=== PATIENT | female | born 1940 | race African-American/Black ===

== ENCOUNTER 2020-03-31 04:37 | Inpatient (IN) | payer MEDICARE ==
[~2020-03-31] VITALS: Ht 157.5 cm; Wt 39.5 kg
--- NOTE | 2020-03-31 04:45 | NUR ---
Patient BIB ambulance on a gurney accompanied by 2 paramedics from [facility], Dx Psychosis. Patient medically cleared by Dr. Hunter.
[2020-03-31] MEDS ORDERED: OLAN5TAB30 PO (05:10)
[2020-03-31] MEDS ORDERED: PENI250C2 PO (05:10)
[2020-03-31] MEDS ORDERED: ZOLP5TAB2 PO (05:10)
[2020-03-31] MEDS ORDERED: ALBU8.5H8 IH (05:10)
[2020-03-31] MEDS ORDERED: SERT50TA PO (05:10)
[2020-03-31] MEDS ORDERED: CLON1PAT TD (05:22)
[2020-03-31] MEDS ORDERED: LITH300T3 PO (05:22)
[2020-03-31] MEDS ORDERED: MAGNESIUM HYDROXIDE 30 ML LIQUID UDC PO PRN (06:00)
[2020-03-31] MEDS ORDERED: ACETAMINOPHEN 325 MG TABLET PO PRN (06:00)
[2020-03-31] MEDS ORDERED: MAG HYDROX/AL HYDROX/SIMETH 30 ML LIQUID UDC PO PRN (06:00)
[2020-03-31] MEDS ORDERED: BLOOD SUGAR DIAGNOSTIC 1 EACH STRIP VI ONE (06:00)
--- NOTE | 2020-03-31 06:30 | NUR ---
AT APPROX 0530 ADMITTED 79 YEARS OLD FEMALE TO [facility] MHU ON A 5150 HOLD FOR GD. FACE TO FACE ASSESSMENT DONE. PATIENT REFLECTS WHAT IS WRITTEN IN THE HOLD. PATIENT NOTED A/O X 1, SHE IS UNABLE TO HAVE A MEANINGFUL CONVERSATION WITH THIS PIPELINE SUPERINTENDENT DIVISION, UNABLE TO SIGN ADMISSION PAPER D/T CONFUSED. PATIENT WAS GIVEN HER ADVISEMENT WELL HER BOOKLET FOR PATIENT IN MENTAL HEALTH FACILITIES. PATIENT IS UNDER THE CARE OF DR. BRODERICK. HE WAS NOTIFIED OF ADMISSION. WILL CONTINUE WITH Q15 MIN CHECKS.
--- NOTE | 2020-03-31 07:17 | NUR ---
Received patient AOx1, confused, disorganized, newly admitted from shift manager, patient don't have dentures , continuously rambling sitting on celeste chair, with ID band on, patient was admitted for 5150 Gravely Disabled up today at 1530, for not been eating and not sleeping and being disorganized , patient unable to provide viable plan of self care, patient unable to have sensical conversation, and confabulate her words, patient started to bang her table and agitated, oral prn for agitation, was made aware of the admission, orders made and carried out, seen and examined by TECHNICAL WRITING LEAD/MGR Larissa Mayers , orders for gentamicin eye drop and UA specimen was collected,patient fell asleep and took a nap in the morning after the medication, patient woke up after few hours and able to consume 100% of her breakfast and lunch with 100% of ensure, patient able to took shower with assistance able to called and spoke with her previous assisted living ([facility]) ([phone]) ,spoke with Laverne and they were able to confirm that the patient originated from them and they provided information regarding the patient, patient been cooperative and calm, no distress at this time
[2020-03-31 07:30] VITALS: BP 156/81
[2020-03-31] MEDS: CLONAZEPAM 0.5 MG TABLET PO PRN (07:42)
--- NOTE | 2020-03-31 08:56 | NUR ---
Firearms Report: [employer] completed and submitted a [employer] firearms report for 5150 grave disability certification. A copy of report has been placed in patient chart.
--- NOTE | 2020-03-31 10:19 | NUR ---
FABIO Initial Discharge Plan: Patient currently resides at an Assisted Living [address] [place] [address]; ([phone]). Patient does not have family at the moment. This proposal manager writer contacted lauren Galloway ([phone]) and did not have a voicemail set up. This proposal manager writer was unable to leave a voicemail. FABIO will work with the MD to help coordinate placement and discharge plan.
--- NOTE | 2020-03-31 10:20 | NUR ---
[facility] Contact: This telegraphic typewriter operator contacted [facility] ([phone]) to gather collateral and spoke with FABIO Castro who stated pt was previously at [facility] psych unit and was sent to [facility] due to medical issues and was medically cleared. [facility] no longer had beds available and was sent to [facility]. Per Gloria, pt does not have any family members at the moment. She provided pt's assisted living information: [address] [place] [phone]; ([phone]) Laverne aguilar who did not have a voicemail set up. This SW was unable to leave a voicemail.
--- NOTE | 2020-03-31 10:21 | NUR ---
SW Family Contact: Pt does not have any supportive contact at the moment.
[2020-03-31 11:03] LABS: *BILIRUBIN,URIN NEGATIVE (NEGATIVE); *CLARITY,URINE SLIGHTLY CLOUDY (CLEAR); *COLOR,URINE YELLOW (YELLOW); *KETONES,URINE NEGATIVE (NEGATIVE); *UROBILINOGEN,URINE 0.2 E.U./dl (NORMAL); LEUKOCYTE ESTERASE ,URINE 2+ (NEGATIVE); NITRITE, URINE NEGATIVE (NEGATIVE); PH,URINE 6.5 (5.0-8.0); UGLUCOSE NEGATIVE (NEGATIVE)
[2020-03-31 11:04] LABS: *BLOOD, URINE TRACE (NEGATIVE)
[2020-03-31 12:30] LABS: BACTERIA,URINE FEW /HPF (NONE SEEN); RBC,URINE 0-3 /HPF (0-3); SQUAMOUS EPITHELIAL CELL,UR FEW /HPF (NONE SEEN)
[2020-03-31] MEDS: ENSURE ENLIVE (VAN) 240 ML LIQUID PO SCH ×2 (13:00→16:27)
[2020-03-31] MEDS: GENTAMICIN SULFATE OPHT DROP 5 ML BOTTLE EACHEYE SCH ×3 (13:00→21:45)
[2020-03-31] MEDS ORDERED: ALBUTEROL SULFATE 2.5 MG/3 ML NEBU IH PRN (15:00)
[2020-03-31] MEDS: SERTRALINE HCL 50 MG TABLET PO SCH (15:04)
[2020-03-31] MEDS: risperiDONE-M 0.5 MG TAB.RAPDIS PO SCH ×2 (15:04→21:45)
[2020-03-31 16:00] VITALS: BP 139/70
[2020-03-31] MEDS: CLONIDINE-TTS 1 PATCH TD SCH (16:26)
[2020-03-31] MEDS ORDERED: GENTAMICIN SULFATE OPHT DROP 5 ML BOTTLE EACHEYE SCH (17:00)
[2020-03-31 20:00] VITALS: BP 146/72
[2020-03-31] MEDS: LITHIUM CARBONATE 300 MG CAPSULE PO SCH (21:45)
[2020-03-31] MEDS: CEphaleXIN 500 MG CAPSULE PO SCH (21:45)
--- NOTE | 2020-03-31 21:51 | NUR ---
PATIENT RECEIVED IN ADA CHAIR ALERT/ORIENTED X1 WITH CONFUSION, DISORGANIZED, LABILE, COMBATIVE, AND HYPERVERBAL. PATIENT REQUIRES REDIRECTION WITH MEDICATION/CARE/DIET. PATIENT REQUIRES CONSTANT REDIRECTION. SAFE ENVIRONMENT PROVIDED AND FREQUENT ROUNDING.WILL CONTINUE TO MONITOR AND REDIRECT NEEDED.
[2020-04-01] MEDS: TEMAZEPAM 7.5 MG CAPSULE PO PRN (01:16)
[2020-04-01 07:53] VITALS: BP 133/49
[2020-04-01] MEDS: SERTRALINE HCL 50 MG TABLET PO SCH (09:00)
[2020-04-01] MEDS: CEphaleXIN 500 MG CAPSULE PO SCH ×2 (09:00→21:00)
[2020-04-01] MEDS: ENSURE ENLIVE (VAN) 240 ML LIQUID PO SCH ×3 (09:00→17:48)
[2020-04-01] MEDS: risperiDONE-M 0.5 MG TAB.RAPDIS PO SCH ×2 (09:00→21:00)
[2020-04-01] MEDS: GENTAMICIN SULFATE OPHT DROP 5 ML BOTTLE EACHEYE SCH ×4 (09:00→21:00)
--- NOTE | 2020-04-01 10:58 | NUR ---
Assisted Living Contact: abatement worker contacted patient's assisted living [facility] and spoke with admin Laverne ([phone]) who stated they have arranged pt to go to [facility] ([phone]) and stated [facility] nurse will reach out to this content writer to send clinicals.
--- NOTE | 2020-04-01 11:42 | NUR ---
SNF Contact: This field underwriter received a phone call from Lawanda ([phone]) ([phone]) who stated pt's sister facility [facility] assisted [facility] wants pt to transfer to [facility] and requires clinicals for review. This field underwriter sent clinicals.
--- NOTE | 2020-04-01 14:27 | NUR ---
SNF Contact: Lawanda senior hr business partner from [address] , [place] [address]; ([phone]) (C: [phone]) (F:[phone]) who stated pt is accepted.
[2020-04-01 16:39] VITALS: BP 118/49
[2020-04-01 20:00] VITALS: BP 144/65
[2020-04-01] MEDS: LITHIUM CARBONATE 300 MG CAPSULE PO SCH (21:00)
--- NOTE | 2020-04-02 03:42 | NUR ---
Patient received earlier in the shift , walking around the unit, talking to self and responding to internal stimuli. Patient is confused and paranoid, refusing to take any medications. Patient stated " I will not take any pills, they are plaster". This check writer redirected and reoriented patient with little success. Patient also refusing to sleep in bed but was willing to sleep in the celeste chair. Patient is hyperverbal and argumentative with everything at this point, and unable to engage in any meaningful conversation. Continuing to monitor for further behavior escalation and for safety.
--- NOTE | 2020-04-02 06:40 | NUR ---
Patient slept 6.00 hours last night . Up early this am. Patient ate some snack but still is demanding and argumentative. Monitoring for safety.
[2020-04-02 07:30] VITALS: BP 134/53
[2020-04-02 08:02] LABS: BASOPHILS % (AUTO) 0.2 % (0.0-2.0); EOSINOPHILS % (AUTO) 0.2 % (0.0-7.0); HEMATOCRIT 32.8 % (31.2-41.9); HEMOGLOBIN 11.2 g/dL (10.9-14.3); LYMPHOCYTES # (AUTO) 1.1 K/uL (20.0-40.0); LYMPHOCYTES % (AUTO) 15.2 % (20.5-51.5); MEAN CORPUSCULAR HEMOGLOBIN 34.2 uug (24.7-32.8); MEAN CORPUSCULAR HGB CONC 34 g/dL (32.3-35.6); MONOCYTES # (AUTO) 0.3 K/uL (2.0-10.0); MONOCYTES % (AUTO) 4.4 % (0.0-11.0); NEUTROPHILS # (AUTO) 5.6 K/uL (1.8-8.9); PLATELET COUNT (AUTO) 185 K/uL (179-408); RED BLOOD CELL COUNT(AUTO) 3.28 MIL/uL (3.63-4.92)
[2020-04-02 08:05] LABS: ALANINE AMINOTRANSFERASE 61 U/L (14-59); ALKALINE PHOSPHATASE 78 U/L (50-136); ASPARTATE AMINOTRANSFERASE 42 U/L (15-37); BILIRUBIN,TOTAL 0.3 mg/dL (0.2-1.0); CARBON DIOXIDE 26 mmol/L (21-32); CHLORIDE 107 mmol/L (98-107); CREATINE KINASE, TOTAL 50 U/L (26-192); CREATININE 1.4 mg/dL (0.6-1.3); GLUCOSE 101 mg/dL (74-106); MAGNESIUM 2.2 mg/dL (1.8-2.4); PHOSPHOROUS 2.4 mg/dL (2.5-4.9); POTASSIUM 4.4 mmol/L (3.5-5.1); TOTAL PROTEIN, SERUM 7.3 g/dL (6.4-8.2); UREA NITROGEN, BLOOD 45 mg/dL (7-18)
[2020-04-02] MEDS: ENSURE ENLIVE (VAN) 240 ML LIQUID PO SCH ×3 (08:48→16:24)
[2020-04-02] MEDS: CEphaleXIN 500 MG CAPSULE PO SCH ×2 (08:48→20:34)
[2020-04-02] MEDS: GENTAMICIN SULFATE OPHT DROP 5 ML BOTTLE EACHEYE SCH ×4 (08:48→20:33)
[2020-04-02] MEDS: risperiDONE-M 0.5 MG TAB.RAPDIS PO SCH ×2 (08:48→20:34)
[2020-04-02] MEDS: SERTRALINE HCL 50 MG TABLET PO SCH (08:49)
--- NOTE | 2020-04-02 10:34 | NUR ---
FABIO PC Hearing: Patient had probable cause hearing today and it was upheld for grave disability.
[2020-04-02 16:00] VITALS: BP 125/47
[2020-04-02] MEDS ORDERED: NEUTRA PHOS PACKET PO ONE (17:30)
[2020-04-02 20:00] VITALS: BP 140/68
[2020-04-02] MEDS: LITHIUM CARBONATE 300 MG CAPSULE PO SCH (20:34)
--- NOTE | 2020-04-03 02:39 | NUR ---
Patient refused all medications last night. Still very paranoid, this patient yelled and screamed at director underwriter sales when medications were discussed. Patient became combative when asked to move away from the nurses station and tried to hit staff. Redirection and reorientation provided with reality based conversation as much as the patient would allow. Monitoring for safety and further behavior escalation episodes. Patient refuses to sleep in her bed d/t delusions of the room " full of men and homosexual women". This patient spends most of her time talking to herself and arguing with staff and peers.
--- NOTE | 2020-04-03 06:28 | NUR ---
Patient slept only 3.00 hours last night and was up early talking to self non stop. Shower was offered and patient refused. Monitoring patient closely and encouraging oral intake of food and fluids.
[2020-04-03 07:30] VITALS: BP 156/76
[2020-04-03] MEDS: ENSURE ENLIVE (VAN) 240 ML LIQUID PO SCH ×3 (09:00→17:00)
[2020-04-03] MEDS: GENTAMICIN SULFATE OPHT DROP 5 ML BOTTLE EACHEYE SCH ×4 (09:00→20:51)
[2020-04-03] MEDS: SERTRALINE HCL 50 MG TABLET PO SCH (09:00)
[2020-04-03] MEDS: risperiDONE-M 0.5 MG TAB.RAPDIS PO SCH ×3 (09:00→21:00)
[2020-04-03] MEDS: CEphaleXIN 500 MG CAPSULE PO SCH (09:00)
[2020-04-03] MEDS: levoFLOXacin 250 MG TABLET PO SCH (14:00)
[2020-04-03] MEDS ORDERED: levoFLOXacin 500 MG TABLET PO SCH (14:00)
[2020-04-03 20:00] VITALS: BP 128/54
[2020-04-03] MEDS: LITHIUM CARBONATE 300 MG CAPSULE PO SCH ×2 (20:50→20:58)
--- NOTE | 2020-04-04 03:46 | NUR ---
RECEIVED PATIENT IN A IN ADA CHAIR. CONFUSED, LABILE,AND COULD BE HEARD TALKING TO HERSELF IN A RAMBLING MANNER. SHE REFUSED ALL MEDICATIONS SAYING "I WANT TO CLEAN OUT MY STOMACH FROM ANY MEDICINE AND WHATEVER JUNK THAT IS CAUSING IT".COULD NOT HOLD ANY MEANINGFUL CONVERSATIONS WITH HER. VISUAL CHECKS MADE ON HER FOR SAFETY. WILL CONTINUE TO MONITOR.
--- NOTE | 2020-04-04 06:47 | NUR ---
SHE SLEPT FOR 7:30 HOURS. SHE HAS BEEN GIVEN A SHOWER. STILL TALKING TO HERSELF.
[2020-04-04 07:30] VITALS: BP 130/50
[2020-04-04 07:55] LABS: CARBON DIOXIDE 27 mmol/L (21-32); CHLORIDE 108 mmol/L (98-107); CREATININE 1.5 mg/dL (0.6-1.3); GLUCOSE 92 mg/dL (74-106); POTASSIUM 4.5 mmol/L (3.5-5.1); UREA NITROGEN, BLOOD 52 mg/dL (7-18)
[2020-04-04 08:09] LABS: BASOPHILS % (AUTO) 0.1 % (0.0-2.0); EOSINOPHILS % (AUTO) 0.2 % (0.0-7.0); HEMATOCRIT 32.5 % (31.2-41.9); HEMOGLOBIN 11.2 g/dL (10.9-14.3); LYMPHOCYTES # (AUTO) 1.4 K/uL (20.0-40.0); MEAN CORPUSCULAR HEMOGLOBIN 34.3 uug (24.7-32.8); MEAN CORPUSCULAR HGB CONC 35 g/dL (32.3-35.6); MEAN CORPUSCULAR VOLUME 99.3 fL (75.5-95.3); MONOCYTES # (AUTO) 0.6 K/uL (2.0-10.0); NEUTROPHILS # (AUTO) 6.6 K/uL (1.8-8.9); NEUTROPHILS % (AUTO) 76.7 % (38.5-71.5); PLATELET COUNT (AUTO) 235 K/uL (179-408); RED BLOOD CELL COUNT(AUTO) 3.27 MIL/uL (3.63-4.92); WHITE BLOOD COUNT (AUTO) 8.6 K/uL (3.8-11.8)
[2020-04-04] MEDS: risperiDONE-M 0.5 MG TAB.RAPDIS PO SCH ×2 (09:00→21:00)
[2020-04-04] MEDS: ENSURE ENLIVE (VAN) 240 ML LIQUID PO SCH ×3 (09:00→17:00)
[2020-04-04] MEDS: SERTRALINE HCL 50 MG TABLET PO SCH (09:00)
[2020-04-04] MEDS: GENTAMICIN SULFATE OPHT DROP 5 ML BOTTLE EACHEYE SCH ×4 (09:00→21:00)
--- NOTE | 2020-04-04 13:39 | NUR ---
Pt remains confused, disoriented, and disorganized. Refuses all medications.
[2020-04-04] MEDS: levoFLOXacin 250 MG TABLET PO SCH (14:00)
[2020-04-04 16:00] VITALS: BP 105/41
[2020-04-04 20:08] VITALS: BP 112/51
[2020-04-04] MEDS: LITHIUM CARBONATE 300 MG CAPSULE PO SCH (21:00)
[2020-04-05 07:30] VITALS: BP 120/45
[2020-04-05] MEDS: ENSURE ENLIVE (VAN) 240 ML LIQUID PO SCH ×3 (09:00→17:00)
[2020-04-05] MEDS: risperiDONE-M 0.5 MG TAB.RAPDIS PO SCH ×2 (09:00→21:00)
[2020-04-05] MEDS: SERTRALINE HCL 50 MG TABLET PO SCH (09:00)
[2020-04-05] MEDS: GENTAMICIN SULFATE OPHT DROP 5 ML BOTTLE EACHEYE SCH (09:00)
[2020-04-05] MEDS: levoFLOXacin 250 MG TABLET PO SCH (14:00)
[2020-04-05 15:38] VITALS: BP 119/51
--- NOTE | 2020-04-05 19:30 | NUR ---
RECEIVED PT IN A ADA-CHAIR.PT IN NO ACUTE DISTRESS.PT CONFUSED AND DISORIENTED. NOT COOPERATIVE WITH CARE. . SAFETY AND COMFORT PROVIDED. WILL CONTINUE TO MONITOR.
[2020-04-05 20:23] VITALS: BP 105/59
[2020-04-05] MEDS: LITHIUM CARBONATE 300 MG CAPSULE PO SCH (21:00)
--- NOTE | 2020-04-06 06:51 | NUR ---
PT SLEPT 9 HOURS. PT IN NO ACUTE DISTRESS NOTED. PT UNCOOPERATIVE WITH CARE. PT TRYING TO HIT STAFF WHEN DOING ADL. PT REFUSED HER MEDICATION. PT TURNED AND REPOSITIONED. SACRAL REDNESS NOTED PRESCRIBED MEDICATION GIVEN AND PT TOLERATED IT WELL. SAFETY AND COMFORT PROVIDED. WILL ENDORSE TO INCOMING NURSE FOR CONTINUITY OF CARE.
[2020-04-06 07:10] LABS: A/G RATIO 0.8 (0.7-1.7); ALBUMIN 2.8 g/dL (2.9-4.4); ALPHA-1-GLOBULIN 0.3 g/dL (0.0-0.4); ALPHA-2-GLOBULIN 0.9 g/dL (0.4-1.0); BETA GLOBULIN 0.9 g/dL (0.7-1.3); GAMMA GLOBULIN 1.6 g/dL (0.4-1.8); GLOBULIN, TOTAL 3.7 g/dL (2.2-3.9); M-SPIKE Not Observed g/dL (Not Observed)
[2020-04-06 07:30] VITALS: BP 140/54
[2020-04-06] MEDS: SERTRALINE HCL 50 MG TABLET PO SCH (09:00)
[2020-04-06] MEDS: risperiDONE-M 0.5 MG TAB.RAPDIS PO SCH ×2 (09:00→21:00)
[2020-04-06] MEDS: ENSURE ENLIVE (VAN) 240 ML LIQUID PO SCH ×3 (09:04→17:10)
[2020-04-06] MEDS: levoFLOXacin 250 MG TABLET PO SCH (14:00)
[2020-04-06 16:41] VITALS: BP 121/50
[2020-04-06 20:00] VITALS: BP 128/55
[2020-04-06] MEDS: LITHIUM CARBONATE 300 MG CAPSULE PO SCH (21:00)
--- NOTE | 2020-04-07 06:00 | NUR ---
Received patient in bed , awake but rambling and confused. Patient refused all medications and refused a shower. Total slept 9.00. This am , patient alert but refusing to get up out of bed. Continuing to monitor for safety and to provide and encourage food and fluids. No acute distress noted.
[2020-04-07 07:30] VITALS: BP 177/96
[2020-04-07] MEDS: ENSURE ENLIVE (VAN) 240 ML LIQUID PO SCH ×3 (08:44→17:00)
[2020-04-07] MEDS: SERTRALINE HCL 50 MG TABLET PO SCH (08:45)
[2020-04-07] MEDS: risperiDONE-M 0.5 MG TAB.RAPDIS PO SCH ×2 (08:45→21:00)
[2020-04-07] MEDS: Z GUARD REMEDY PASTE 57 GM TUBE TOP SCH ×2 (08:46→21:10)
[2020-04-07] MEDS: levoFLOXacin 250 MG TABLET PO SCH (14:00)
[2020-04-07] MEDS: CLONIDINE-TTS 1 PATCH TD SCH (15:46)
[2020-04-07 16:11] VITALS: BP 127/70
--- NOTE | 2020-04-07 17:52 | NUR ---
patient is confused and disoriented, refused all medication, agitated and aggressive when care provided.shower given diaper changed keep skin dry and clean intact.
[2020-04-07 20:00] VITALS: BP 112/78
[2020-04-07] MEDS: LITHIUM CARBONATE 300 MG CAPSULE PO SCH (21:00)
--- NOTE | 2020-04-07 22:06 | NUR ---
Patient received in bed awake. Patient alert/oriented x1 with confusion, disorganized, disoriented, labile, and agitated with aggression during patient care. Patient is non-complaint with medication/care/diet. Patient rambling and responding to internal stimulation. Safe environment provided, frequent rounding, and clutter free environment. Bed in lowest position, bed locked, and bed alarm on while in bed.
[2020-04-08 07:30] VITALS: BP 154/94
[2020-04-08 08:18] LABS: BASOPHILS % (AUTO) 0.5 % (0.0-2.0); EOSINOPHILS % (AUTO) 0.2 % (0.0-7.0); HEMATOCRIT 39.2 % (31.2-41.9); HEMOGLOBIN 13.3 g/dL (10.9-14.3); LYMPHOCYTES # (AUTO) 1.9 K/uL (20.0-40.0); LYMPHOCYTES % (AUTO) 23.6 % (20.5-51.5); MEAN CORPUSCULAR HEMOGLOBIN 34.2 uug (24.7-32.8); MEAN CORPUSCULAR HGB CONC 34 g/dL (32.3-35.6); MEAN CORPUSCULAR VOLUME 100.7 fL (75.5-95.3); MONOCYTES # (AUTO) 0.6 K/uL (2.0-10.0); MONOCYTES % (AUTO) 6.9 % (0.0-11.0); NEUTROPHILS # (AUTO) 5.5 K/uL (1.8-8.9); NEUTROPHILS % (AUTO) 68.8 % (38.5-71.5); PLATELET COUNT (AUTO) 333 K/uL (179-408); RED BLOOD CELL COUNT(AUTO) 3.89 MIL/uL (3.63-4.92)
[2020-04-08 08:30] LABS: CARBON DIOXIDE 30 mmol/L (21-32); CHLORIDE 110 mmol/L (98-107); CREATININE 2.3 mg/dL (0.6-1.3); GLUCOSE 117 mg/dL (74-106); MAGNESIUM 3.6 mg/dL (1.8-2.4); POTASSIUM 4.4 mmol/L (3.5-5.1)
[2020-04-08] MEDS: CLONAZEPAM 0.5 MG TABLET PO PRN (08:36)
[2020-04-08 08:49] LABS: UREA NITROGEN, BLOOD 99 mg/dL (7-18)
[2020-04-08] MEDS: SERTRALINE HCL 50 MG TABLET PO SCH (09:00)
[2020-04-08] MEDS: risperiDONE-M 0.5 MG TAB.RAPDIS PO SCH ×2 (09:00→20:47)
[2020-04-08] MEDS: ENSURE ENLIVE (VAN) 240 ML LIQUID PO SCH ×3 (09:00→14:58)
--- NOTE | 2020-04-08 09:00 | NUR ---
Gps/Olive Grower-Called Nancy Maloney NP reported critical lab BUN 99, waiting for return call and orders
[2020-04-08] MEDS ORDERED: OLANZAPINE 10 MG VIAL IM ONE (09:30)
[2020-04-08] MEDS ORDERED: LORAZEPAM 2 MG/1 ML VIAL IM ONE (09:30)
[2020-04-08] MEDS: Z GUARD REMEDY PASTE 57 GM TUBE TOP SCH ×2 (09:42→20:48)
--- NOTE | 2020-04-08 12:20 | NUR ---
Gps/Product Development Assistant- Court called regarding Reise hearing , requesting availability of Psychiatrist
[2020-04-08] MEDS: levoFLOXacin 250 MG TABLET PO SCH (14:00)
[2020-04-08] MEDS ORDERED: IV NS 1000 ML 1,000 ML IV ONE (14:15)
--- NOTE | 2020-04-08 15:10 | NUR ---
Mental [facility] Court Contact: FABIO called the Court ([phone]) and inquired about the pts Riese status. FABIO was informed that the earliest that it would be would be on Sunday based off of the MD availability. FABIO's supervisor stone confirmed with Dr. Griffin for a time that he would be available for Sunday and FABIO faxed over the change in availability on the Riese form to the fax number: [phone].
[2020-04-08 16:00] VITALS: BP 101/43
--- NOTE | 2020-04-08 17:00 | NUR ---
Gps/Rigger Chief- IV inserted insyte #24 to right forearm. IVF of NS 1 liter bolus infusing fairly well. Asleep no signs of any distress, safety reviewed and emphasized. bed alarm on , monitor safety.
--- NOTE | 2020-04-08 18:10 | NUR ---
Gps/Sanitarian Inspector-Remains asleep, no distress, IVF of NS i in progress, infusing well
[2020-04-08 20:00] VITALS: BP 122/62
[2020-04-08] MEDS: LITHIUM CARBONATE 300 MG CAPSULE PO SCH (20:47)
--- NOTE | 2020-04-09 06:16 | NUR ---
GPS: Pt. slept for 10 hrs.last night. Now awake and talking to self. Confused,disoriented and disorganized. Sips of water given for hydration purposes but pt.pocketing the water and spitting it out. Poor insight to present situation. Incontinence care provided. Fall precautions observed. In no acute resp.distress noted. Re-directed prn.
[2020-04-09 07:30] VITALS: BP 129/51
[2020-04-09 07:52] LABS: CARBON DIOXIDE 25 mmol/L (21-32); CHLORIDE 116 mmol/L (98-107); CREATININE 2.9 mg/dL (0.6-1.3); GLUCOSE 94 mg/dL (74-106); MAGNESIUM 3.2 mg/dL (1.8-2.4); PHOSPHOROUS 5.8 mg/dL (2.5-4.9); POTASSIUM 4.8 mmol/L (3.5-5.1)
[2020-04-09 07:56] LABS: BASOPHILS % (AUTO) 0.4 % (0.0-2.0); EOSINOPHILS % (AUTO) 0.2 % (0.0-7.0); HEMATOCRIT 36.4 % (31.2-41.9); HEMOGLOBIN 12.3 g/dL (10.9-14.3); LYMPHOCYTES # (AUTO) 2.4 K/uL (20.0-40.0); LYMPHOCYTES % (AUTO) 27.7 % (20.5-51.5); MEAN CORPUSCULAR HEMOGLOBIN 33.9 uug (24.7-32.8); MEAN CORPUSCULAR HGB CONC 34 g/dL (32.3-35.6); MEAN CORPUSCULAR VOLUME 100.8 fL (75.5-95.3); MONOCYTES # (AUTO) 0.6 K/uL (2.0-10.0); MONOCYTES % (AUTO) 6.6 % (0.0-11.0); NEUTROPHILS # (AUTO) 5.6 K/uL (1.8-8.9); NEUTROPHILS % (AUTO) 65.1 % (38.5-71.5); PLATELET COUNT (AUTO) 309 K/uL (179-408); RED BLOOD CELL COUNT(AUTO) 3.61 MIL/uL (3.63-4.92); WHITE BLOOD COUNT (AUTO) 8.6 K/uL (3.8-11.8)
[2020-04-09 08:01] LABS: UREA NITROGEN, BLOOD 110 mg/dL (7-18)
--- NOTE | 2020-04-09 08:02 | NUR ---
Emilie from lab called to report critical lab, BUN of 110.
--- NOTE | 2020-04-09 08:11 | NUR ---
Gps/Elevator Installer Apprentice- Called Nancy Maloney DNP, informed BUN 110 , Creat 2.9, orders received to transfer patient to Medical floor(3rd). Nursing Pyrometer Temperature Regulator Ericka was informed, sitter will be available not until 1300 .
[2020-04-09] MEDS ORDERED: IV NS 1000 ML 1,000 ML IV PRN (09:00)
[2020-04-09] MEDS: SERTRALINE HCL 50 MG TABLET PO SCH (09:00)
[2020-04-09] MEDS: ENSURE ENLIVE (VAN) 240 ML LIQUID PO SCH ×3 (09:00→17:00)
[2020-04-09] MEDS: risperiDONE-M 0.5 MG TAB.RAPDIS PO SCH ×2 (09:00→20:16)
[2020-04-09] MEDS ORDERED: IV NS 1000 ML 1,000 ML IV SCH (09:03)
[2020-04-09] MEDS: OLANZAPINE 10 MG VIAL IM PRN (11:09)
[2020-04-09] MEDS: levoFLOXacin 250 MG TABLET PO SCH (14:00)
[2020-04-09 15:16] VITALS: BP 112/50
[2020-04-09] MEDS: Z GUARD REMEDY PASTE 57 GM TUBE TOP SCH ×2 (15:20→20:17)
--- NOTE | 2020-04-09 15:21 | NUR ---
Gps/Respiratory Clinician- [place] [facility]um: 04/09/20 at 1522 by MOODY SAPPN error in charted
--- NOTE | 2020-04-09 15:22 | NUR ---
Gps/Conduit Cleaner-- Patient remains in MHU , pending bed availability on the M/S floor. Remains with IVF infusing well to her right forearm, via IV pump 75 ml per hours cont. Kept up on her celeste-chair, by the Nurses station , monitored closely for safety.
[2020-04-09] MEDS: IV D5 1/2 NS 1000 ML 1,000 ML IV SCH (16:21)
--- NOTE | 2020-04-09 16:52 | NUR ---
Gps/Screener And Blender- Making sounds, mumbling when tried to interacts with patient her voice tends to get louder, yells , covering her own face with a bath towel.. IVF to D5 1/2 NS at 75 ml/hr via IV pump
--- NOTE | 2020-04-09 18:40 | NUR ---
Gps/Mortgage Processing Clerk- Patient with continous IVF of D5 1/2 NS at 75 ml/hr. Yoselin Director SW. was informed of the need for a sitter for patient's safety, claimed patient does not need it. Kept patient up in her celeste-chair most of the day, inside the Nurses Station for close supervision. Patient still refusing oral intake, was able to eat pudding and few bites of apple sauce, refused ensure supplement .Patient mumbling kept talking to herself . Patient was toileted at a regular intervals.
[2020-04-09 19:45] VITALS: BP 103/71
[2020-04-09] MEDS: TEMAZEPAM 7.5 MG CAPSULE PO PRN ×2 (22:34→22:38)
[2020-04-10] MEDS: IV D5 1/2 NS 1000 ML 1,000 ML IV SCH (04:15)
--- NOTE | 2020-04-10 05:29 | NUR ---
GPS: Pt.now awake at this time. Remains on IVF of D5 1/2 NS@75 ml/hr infusing well over RFA. IV site without any s/s of infiltration noted. No s/s of fluid overload noted. Denies SOB. Pt.is confused,disoriented and disorganized. Poor insight to present situation. Continues to talk to self continuously and non-sensical. Intrusive and easily irritable when being re-directed. Fall precautions observed. Bed alarm on for safety. Refuses PO fluids at this time when offered. Slept 5.15 minutes last night.
[2020-04-10 07:30] VITALS: BP 133/55
[2020-04-10] MEDS: risperiDONE-M 0.5 MG TAB.RAPDIS PO SCH ×2 (08:24→21:00)
[2020-04-10] MEDS: ENSURE ENLIVE (VAN) 240 ML LIQUID PO SCH ×3 (08:24→17:00)
[2020-04-10] MEDS: SERTRALINE HCL 50 MG TABLET PO SCH (08:24)
[2020-04-10] MEDS: Z GUARD REMEDY PASTE 57 GM TUBE TOP SCH ×2 (08:25→20:28)
[2020-04-10 08:38] LABS: BASOPHILS % (AUTO) 0.5 % (0.0-2.0); EOSINOPHILS % (AUTO) 0.5 % (0.0-7.0); HEMATOCRIT 34.4 % (31.2-41.9); HEMOGLOBIN 11.7 g/dL (10.9-14.3); LYMPHOCYTES # (AUTO) 2.4 K/uL (20.0-40.0); LYMPHOCYTES % (AUTO) 37.6 % (20.5-51.5); MEAN CORPUSCULAR HEMOGLOBIN 34.1 uug (24.7-32.8); MEAN CORPUSCULAR HGB CONC 34 g/dL (32.3-35.6); MEAN CORPUSCULAR VOLUME 100.6 fL (75.5-95.3); MONOCYTES # (AUTO) 0.5 K/uL (2.0-10.0); MONOCYTES % (AUTO) 7.1 % (0.0-11.0); NEUTROPHILS # (AUTO) 3.5 K/uL (1.8-8.9); NEUTROPHILS % (AUTO) 54.3 % (38.5-71.5); PLATELET COUNT (AUTO) 266 K/uL (179-408); RED BLOOD CELL COUNT(AUTO) 3.42 MIL/uL (3.63-4.92); WHITE BLOOD COUNT (AUTO) 6.4 K/uL (3.8-11.8)
[2020-04-10 08:43] LABS: CARBON DIOXIDE 24 mmol/L (21-32); CHLORIDE 120 mmol/L (98-107); CREATININE 2.3 mg/dL (0.6-1.3); GLUCOSE 107 mg/dL (74-106); MAGNESIUM 3.2 mg/dL (1.8-2.4); PHOSPHOROUS 4.4 mg/dL (2.5-4.9); POTASSIUM 4.4 mmol/L (3.5-5.1)
[2020-04-10 08:46] LABS: UREA NITROGEN, BLOOD 97 mg/dL (7-18)
[2020-04-10] MEDS: OLANZAPINE 10 MG VIAL IM PRN ×2 (08:52→20:36)
[2020-04-10] MEDS: IV D5W 1000ML 1,000 ML IV SCH ×2 (09:45→22:52)
--- NOTE | 2020-04-10 10:12 | NUR ---
GPS: Nursing Notes: UTI: Staff informed Maxi Orozco NP about UTI according to 03/31/20 UA, patient had refused her antibiotic PO treatment, no further orders were given, stated that he will keep an eye on it, continue to monitor patient, continue with treatment plan.
[2020-04-10] MEDS ORDERED: levoFLOXacin 750MG/D5W 750 MG in PREMIXED 1 EACH IV ONE (11:00)
[2020-04-10] MEDS ORDERED: CEFTRIAXONE 1 G VIAL IM SCH (11:15)
[2020-04-10] MEDS ORDERED: CEFTAZIDIME 1 G VIAL IM ONE (13:00)
[2020-04-10 16:00] VITALS: BP 97/38
[2020-04-10 16:54] VITALS: BP 100/56
[2020-04-10 20:19] VITALS: BP 87/34
--- NOTE | 2020-04-10 21:00 | NUR ---
Pt refused scheduled PO HS Risperdal. Per Riese order, back up IM Zyprexa 5mg administered to (R) deltoid. Pt cooperative with injection. Will continue to monitor.
[2020-04-10 22:30] VITALS: BP 96/46
--- NOTE | 2020-04-11 05:55 | NUR ---
Received Pt lying in bed awake. A+Ox1, Pt is confused, forgetful, disorganized, and disoriented. Unable to have a relevant conversation, Pt makes non sensical statements and is a poor historian. Pt is non compliant with medications and resistant to care. Pt becomes aggressive and combative when ADLs are provided and medication id administered. D5W infusing to (R) FA @ 75ml/hr. Line is patent, no s/s of infection present to site. Denies pain. Bed bath given. Z guard applied to sacral area.
[2020-04-11 07:30] VITALS: BP 91/50
[2020-04-11] MEDS: ENSURE ENLIVE (VAN) 240 ML LIQUID PO SCH ×3 (08:40→16:27)
[2020-04-11] MEDS: risperiDONE-M 0.5 MG TAB.RAPDIS PO SCH (08:40)
[2020-04-11] MEDS: Z GUARD REMEDY PASTE 57 GM TUBE TOP SCH ×2 (08:41→20:14)
[2020-04-11] MEDS: SERTRALINE HCL 50 MG TABLET PO SCH (08:42)
[2020-04-11 09:49] LABS: BASOPHILS % (AUTO) 0.4 % (0.0-2.0); EOSINOPHILS % (AUTO) 0.4 % (0.0-7.0); HEMATOCRIT 32.6 % (31.2-41.9); LYMPHOCYTES # (AUTO) 2.1 K/uL (20.0-40.0); LYMPHOCYTES % (AUTO) 33.8 % (20.5-51.5); MEAN CORPUSCULAR HEMOGLOBIN 34.4 uug (24.7-32.8); MEAN CORPUSCULAR HGB CONC 34 g/dL (32.3-35.6); MEAN CORPUSCULAR VOLUME 101.7 fL (75.5-95.3); MONOCYTES # (AUTO) 0.3 K/uL (2.0-10.0); MONOCYTES % (AUTO) 4.6 % (0.0-11.0); NEUTROPHILS # (AUTO) 3.7 K/uL (1.8-8.9); NEUTROPHILS % (AUTO) 60.8 % (38.5-71.5); PLATELET COUNT (AUTO) 235 K/uL (179-408); WHITE BLOOD COUNT (AUTO) 6.1 K/uL (3.8-11.8)
[2020-04-11 09:56] LABS: CARBON DIOXIDE 25 mmol/L (21-32); CHLORIDE 108 mmol/L (98-107); CREATININE 2.1 mg/dL (0.6-1.3); GLUCOSE 129 mg/dL (74-106); MAGNESIUM 2.6 mg/dL (1.8-2.4); PHOSPHOROUS 3.3 mg/dL (2.5-4.9); POTASSIUM 4.1 mmol/L (3.5-5.1); UREA NITROGEN, BLOOD 75 mg/dL (7-18)
[2020-04-11] MEDS: IV D5W 1000ML 1,000 ML IV SCH (12:35)
[2020-04-11] MEDS: CEFTAZIDIME 1 G VIAL IM SCH (12:48)
[2020-04-11 16:22] VITALS: BP 97/58
[2020-04-11] MEDS: IV D5/ 0.9% NACL 1,000 ML IV PRN (16:37)
[2020-04-11] MEDS ORDERED: HALOPERIDOL LACTATE 5 MG/1 ML VIAL IM SCH (17:00)
[2020-04-11] MEDS ORDERED: HALOPERIDOL 2 MG TABLET PO SCH (17:00)
--- NOTE | 2020-04-11 18:57 | NUR ---
patient is in bed with IVF on going ,Iv site changed due to infiltrated , turn and rev pisition Q2 for comfort, compliant with all medication.
[2020-04-11 20:11] VITALS: BP 99/56
[2020-04-11] MEDS: HALOPERIDOL 2 MG TABLET PO SCH (20:20)
[2020-04-11] MEDS: HALOPERIDOL LACTATE 5 MG/1 ML VIAL IM SCH (20:21)
[2020-04-11] MEDS ORDERED: risperiDONE-M 0.5 MG TAB.RAPDIS PO SCH (21:00)
--- NOTE | 2020-04-12 07:01 | NUR ---
Denies pain, BP decreased. D5W infusing at 100ml/hr to (R) upper arm. PO fluids encouraged, Pt less resistant to care this shift.Compliant with PO meds with prompting. Safety ensured, Pt repositioned Q 2 hours and bony prominences padded. Redness noted to sacral area, Z guard applied.
[2020-04-12 07:30] VITALS: BP 95/50
[2020-04-12] MEDS: SERTRALINE HCL 50 MG TABLET PO SCH (08:24)
[2020-04-12] MEDS: HALOPERIDOL 2 MG TABLET PO SCH (08:24)
[2020-04-12] MEDS: ENSURE ENLIVE (VAN) 240 ML LIQUID PO SCH ×3 (08:30→17:16)
[2020-04-12] MEDS: Z GUARD REMEDY PASTE 57 GM TUBE TOP SCH ×2 (08:30→20:02)
[2020-04-12] MEDS: HALOPERIDOL LACTATE 5 MG/1 ML VIAL IM SCH ×2 (09:00→20:01)
[2020-04-12 09:51] LABS: BASOPHILS % (AUTO) 0.2 % (0.0-2.0); EOSINOPHILS % (AUTO) 0.3 % (0.0-7.0); HEMATOCRIT 33.3 % (31.2-41.9); HEMOGLOBIN 11.3 g/dL (10.9-14.3); LYMPHOCYTES # (AUTO) 1.7 K/uL (20.0-40.0); LYMPHOCYTES % (AUTO) 23.9 % (20.5-51.5); MEAN CORPUSCULAR HEMOGLOBIN 34.3 uug (24.7-32.8); MEAN CORPUSCULAR HGB CONC 34 g/dL (32.3-35.6); MEAN CORPUSCULAR VOLUME 101.2 fL (75.5-95.3); MONOCYTES # (AUTO) 0.4 K/uL (2.0-10.0); MONOCYTES % (AUTO) 5.2 % (0.0-11.0); NEUTROPHILS # (AUTO) 4.9 K/uL (1.8-8.9); NEUTROPHILS % (AUTO) 70.4 % (38.5-71.5); PLATELET COUNT (AUTO) 230 K/uL (179-408); RED BLOOD CELL COUNT(AUTO) 3.29 MIL/uL (3.63-4.92); WHITE BLOOD COUNT (AUTO) 6.9 K/uL (3.8-11.8)
[2020-04-12] MEDS: CLONAZEPAM 0.5 MG TABLET PO PRN (10:37)
[2020-04-12] MEDS ORDERED: levoFLOXacin 500 MG/D5W 500 MG in PREMIXED 1 EACH IV SCH (11:00)
[2020-04-12 11:22] LABS: CARBON DIOXIDE 25 mmol/L (21-32); CHLORIDE 108 mmol/L (98-107); CREATININE 1.7 mg/dL (0.6-1.3); GLUCOSE 125 mg/dL (74-106); MAGNESIUM 2.6 mg/dL (1.8-2.4); PHOSPHOROUS 3.1 mg/dL (2.5-4.9); POTASSIUM 4.6 mmol/L (3.5-5.1); UREA NITROGEN, BLOOD 61 mg/dL (7-18)
[2020-04-12] MEDS: CEFTAZIDIME 1 G VIAL IM SCH (12:21)
[2020-04-12] MEDS: IV D5/ 0.9% NACL 1,000 ML IV PRN (14:36)
[2020-04-12 15:26] VITALS: BP 90/52
--- NOTE | 2020-04-12 17:57 | NUR ---
patient is more cooperative and compliant with medication and compliant with all nursing care,shower given no resisted .continue on IVF infusing well tolerated.able to fed self ,total care to all ADLS, keep skin dry and clean at all time.
[2020-04-12 19:45] VITALS: BP 100/46
[2020-04-12] MEDS: HALOPERIDOL 1 MG TABLET PO SCH (20:02)
--- NOTE | 2020-04-12 20:30 | NUR ---
Pt agreed to take her scheduled HS PO Haldol, but when approached with the medication by this magnetic tape typewriter operator, she screamed, "that's not mine, I only take one pill!" Pt swatted the medication to the floor, and medication was wasted. Back up IM of Haldol 2mg administered to Riese order. IM administered to (L) arm, Pt tolerated well.
[2020-04-13] MEDS: IV D5/ 0.9% NACL 1,000 ML IV PRN ×2 (00:31→13:40)
--- NOTE | 2020-04-13 06:44 | NUR ---
Received Pt lying awake in bed, BP decreased, feet elevated and PO fluids given, asymptomatic for s/s of hypotension. D51/2 NS infusing at 100ml/hr to (R) upper FA, line patent, no s/s of infection noted at site. Pt much more receptive to snacks and drinks this shift. Pt less resistant to care, but yells at staff when ADLs are provided. Pt continues to exhibit altered thought process, is disorganized, disoriented, and confused. Redirection and reality reorientation provided as needed. Redness noted to sacral area, skin cleansed with soap and water and Z guard applied x2 during shift, diaper removed. Safety maintained, Pt repositioned Q 2 hours and bony prominences padded. At approximately 0530, when doing rounds, (R) arm was noted to be infiltrated, extremity swollen. Infusion stopped and IV removed. No staff available to re-start IV at this time. Will endorse to oncoming shift.
[2020-04-13 07:30] VITALS: BP 103/48
[2020-04-13] MEDS: SERTRALINE HCL 50 MG TABLET PO SCH (08:59)
[2020-04-13] MEDS: HALOPERIDOL LACTATE 5 MG/1 ML VIAL IM SCH (09:00)
[2020-04-13] MEDS: HALOPERIDOL 1 MG TABLET PO SCH (09:04)
[2020-04-13] MEDS: Z GUARD REMEDY PASTE 57 GM TUBE TOP SCH ×2 (09:15→20:28)
[2020-04-13] MEDS: ENSURE ENLIVE (VAN) 240 ML LIQUID PO SCH ×3 (09:16→17:42)
--- NOTE | 2020-04-13 11:45 | NUR ---
SW Individual Counseling: lot worker met with patient for brief counseling and assessed for disorganized thought process. Patient was uncooperative and was yelling at this sports writer, per pt she stated "get out". This SW was unable to conducting individual counseling at this moment.
[2020-04-13] MEDS: CEFTAZIDIME 1 G VIAL IM SCH (12:28)
[2020-04-13 15:55] LABS: BASOPHILS % (AUTO) 0.3 % (0.0-2.0); EOSINOPHILS % (AUTO) 0.2 % (0.0-7.0); HEMOGLOBIN 10.1 g/dL (10.9-14.3); LYMPHOCYTES # (AUTO) 1.4 K/uL (20.0-40.0); LYMPHOCYTES % (AUTO) 22.7 % (20.5-51.5); MEAN CORPUSCULAR HGB CONC 34 g/dL (32.3-35.6); MEAN CORPUSCULAR VOLUME 100.6 fL (75.5-95.3); MONOCYTES # (AUTO) 0.4 K/uL (2.0-10.0); MONOCYTES % (AUTO) 5.7 % (0.0-11.0); NEUTROPHILS # (AUTO) 4.4 K/uL (1.8-8.9); NEUTROPHILS % (AUTO) 71.1 % (38.5-71.5); PLATELET COUNT (AUTO) 190 K/uL (179-408); RED BLOOD CELL COUNT(AUTO) 2.98 MIL/uL (3.63-4.92); WHITE BLOOD COUNT (AUTO) 6.2 K/uL (3.8-11.8)
[2020-04-13 16:07] LABS: CARBON DIOXIDE 24 mmol/L (21-32); CHLORIDE 115 mmol/L (98-107); CREATININE 1.5 mg/dL (0.6-1.3); GLUCOSE 109 mg/dL (74-106); MAGNESIUM 2.2 mg/dL (1.8-2.4); PHOSPHOROUS 2.3 mg/dL (2.5-4.9); POTASSIUM 5.1 mmol/L (3.5-5.1); UREA NITROGEN, BLOOD 55 mg/dL (7-18)
[2020-04-13 16:35] VITALS: BP 99/50
[2020-04-13 20:00] VITALS: BP 104/49
[2020-04-13] MEDS: HALOPERIDOL 5 MG TABLET PO SCH (20:28)
[2020-04-13] MEDS ORDERED: HALOPERIDOL LACTATE 5 MG/1 ML VIAL IM SCH (21:00)
[2020-04-14] MEDS: IV D5/ 0.9% NACL 1,000 ML IV PRN ×2 (02:01→12:16)
--- NOTE | 2020-04-14 06:17 | NUR ---
Patient refused to take PO Haldol last night. IM was given and patient tolerated it well. Continuos IVF still going in left hand. Total bath given this am, patient had large urine output and a large BM. Still talks to herself and is mostly uncooperative. Monitoring for safety and assistance given with all needs.
[2020-04-14 07:30] VITALS: BP 144/71
[2020-04-14 07:30] LABS: BASOPHILS % (AUTO) 0.3 % (0.0-2.0); EOSINOPHILS % (AUTO) 0.1 % (0.0-7.0); HEMATOCRIT 30.6 % (31.2-41.9); HEMOGLOBIN 10.5 g/dL (10.9-14.3); LYMPHOCYTES # (AUTO) 1.5 K/uL (20.0-40.0); LYMPHOCYTES % (AUTO) 18.1 % (20.5-51.5); MEAN CORPUSCULAR HEMOGLOBIN 34.4 uug (24.7-32.8); MEAN CORPUSCULAR HGB CONC 34 g/dL (32.3-35.6); MEAN CORPUSCULAR VOLUME 100.7 fL (75.5-95.3); MONOCYTES # (AUTO) 0.4 K/uL (2.0-10.0); MONOCYTES % (AUTO) 5.2 % (0.0-11.0); NEUTROPHILS # (AUTO) 6.3 K/uL (1.8-8.9); NEUTROPHILS % (AUTO) 76.3 % (38.5-71.5); PLATELET COUNT (AUTO) 195 K/uL (179-408); RED BLOOD CELL COUNT(AUTO) 3.04 MIL/uL (3.63-4.92); WHITE BLOOD COUNT (AUTO) 8.3 K/uL (3.8-11.8)
[2020-04-14 07:54] LABS: ALANINE AMINOTRANSFERASE 46 U/L (14-59); ALKALINE PHOSPHATASE 79 U/L (50-136); ASPARTATE AMINOTRANSFERASE 29 U/L (15-37); BILIRUBIN,TOTAL 0.3 mg/dL (0.2-1.0); CARBON DIOXIDE 25 mmol/L (21-32); CHLORIDE 121 mmol/L (98-107); CREATININE 1.4 mg/dL (0.6-1.3); GLUCOSE 115 mg/dL (74-106); MAGNESIUM 2.4 mg/dL (1.8-2.4); PHOSPHOROUS 2.5 mg/dL (2.5-4.9); TOTAL PROTEIN, SERUM 6.6 g/dL (6.4-8.2); UREA NITROGEN, BLOOD 51 mg/dL (7-18)
[2020-04-14] MEDS: ENSURE ENLIVE (VAN) 240 ML LIQUID PO SCH ×3 (08:28→16:13)
[2020-04-14] MEDS ORDERED: HALOPERIDOL LACTATE 5 MG/1 ML VIAL IM SCH (09:00)
[2020-04-14] MEDS: HALOPERIDOL 2 MG TABLET PO SCH (09:00)
[2020-04-14] MEDS: SERTRALINE HCL 50 MG TABLET PO SCH (09:00)
[2020-04-14] MEDS: Z GUARD REMEDY PASTE 57 GM TUBE TOP SCH ×2 (09:30→20:47)
[2020-04-14] MEDS: CEFTAZIDIME 1 G VIAL IM SCH (12:16)
[2020-04-14] MEDS ORDERED: HALOPERIDOL DECANOATE 50 MG/1 ML AMPUL IM ONE (14:45)
[2020-04-14 16:00] VITALS: BP 131/56
[2020-04-14] MEDS: CLONIDINE-TTS 1 PATCH TD SCH (16:03)
--- NOTE | 2020-04-14 17:50 | NUR ---
Received patient AOx1, patient on bed, with IVF of D2 Nacl 9%, in her Left hand running at 100cc per hour , patient tolerating the fluids, patient poor insights, poor impulse control, patient refused her oral medication and saying thats not my medicine, patient receive RIESE PROTOCOL , patient took a nap in her bed, after IVF was finished, called and spoke with MD regarding if another IVF needed, follow up bag was started at 12noon, patient took shower, and was eating her meal, denies SI and HI, patient unable to contract safety and plan of care at this time, will continue monitor
[2020-04-14 20:00] VITALS: BP 130/64
[2020-04-14] MEDS: HALOPERIDOL 5 MG TABLET PO SCH (20:49)
--- NOTE | 2020-04-15 00:05 | NUR ---
GPS: Noted pt.to be still awake and talking to self at this time. Re-directed prn. Quiet environment provided to facilitate sleep. Refused sleeping pill despite explanation of risks vs benefits x3. Fall precautions observed. IVF continues and manuela.well. No s/s of fluid overload noted. Will continue to monitor.
[2020-04-15] MEDS: IV D5/ 0.9% NACL 1,000 ML IV PRN (00:07)
--- NOTE | 2020-04-15 06:54 | NUR ---
GPS: Pt.is up on celeste-chair near nurses station for safety. Continues to talk non-stop and non-sensical. Gets angry and irritable when being re-directed. Klonopin 0.5mg given PO was offered but strongly refused. Diversional activities was provided. IVF continues and manuela.well. Will continue to monitor for further escalation of behavior.
[2020-04-15 07:30] VITALS: BP 131/66
[2020-04-15 08:14] LABS: CREATININE 1.3 mg/dL (0.6-1.3)
[2020-04-15] MEDS: Z GUARD REMEDY PASTE 57 GM TUBE TOP SCH ×2 (08:40→20:21)
[2020-04-15] MEDS: HALOPERIDOL 2 MG TABLET PO SCH (08:42)
[2020-04-15] MEDS: SERTRALINE HCL 50 MG TABLET PO SCH (08:42)
[2020-04-15] MEDS: ENSURE ENLIVE (VAN) 240 ML LIQUID PO SCH ×3 (08:43→17:34)
[2020-04-15] MEDS: CEFTAZIDIME 1 G VIAL IM SCH (15:02)
[2020-04-15 16:53] VITALS: BP 157/69
[2020-04-15] MEDS ORDERED: IV DEXTROSE 5% 500 ML BAG IV ONE (17:00)
[2020-04-15] MEDS ORDERED: IV DEXTROSE 5% 500 ML IV ONE (18:00)
--- NOTE | 2020-04-15 18:11 | NUR ---
Pt was aministered IV fluids (5% dextrose, 500ml). Clarified order with Larissa Mayers NP, only one bag is to be given.
[2020-04-15 19:45] VITALS: BP 118/79
[2020-04-15] MEDS: HALOPERIDOL 5 MG TABLET PO SCH (20:21)
[2020-04-16 07:30] VITALS: BP 149/58
--- NOTE | 2020-04-16 08:00 | NUR ---
Discharge Note: Patient will be discharged to halfway facility, [address] [place] [address]; ([phone]) via ambulance at 2PM. Social Welfare Research Worker spoke with Lawanda business support assistant ([phone]) (F:[phone]) accepted patient, who stated patient will be accepted back at facility today. Patient does not have any family. Patient is alert and oriented x1 and is unable to plan for self-care. Patient denies any suicidal or homicidal ideation. Patient is aware and agreeable with discharge plans. Patient will continue to follow-up with (Psychiatrist) Dr. Camacho and (Churn Operator) Dr. Isabel Phillip at [address] [place] [address]; ([phone]). Patient presents with euthymic and congruent mood.
[2020-04-16 08:05] LABS: CARBON DIOXIDE 29 mmol/L (21-32); CHLORIDE 119 mmol/L (98-107); CREATININE 1.4 mg/dL (0.6-1.3); GLUCOSE 104 mg/dL (74-106); POTASSIUM 5.4 mmol/L (3.5-5.1); UREA NITROGEN, BLOOD 50 mg/dL (7-18)
[2020-04-16] MEDS: ENSURE ENLIVE (VAN) 240 ML LIQUID PO SCH ×3 (09:00→16:02)
[2020-04-16] MEDS: Z GUARD REMEDY PASTE 57 GM TUBE TOP SCH (09:00)
[2020-04-16] MEDS: SODIUM POLYSTYRENE SULFONATE 15 G/60 ML LIQUID UDC PO ONE (09:00)
[2020-04-16] MEDS: HALOPERIDOL 2 MG TABLET PO SCH (09:00)
[2020-04-16] MEDS: SERTRALINE HCL 50 MG TABLET PO SCH (09:00)
--- NOTE | 2020-04-16 11:40 | NUR ---
received patient in the hallway. she is noted awake A/O x 2. continue easily irritable, talking to herself, she requires multiple redirection. continue non compliant with medication regiment. refused all her morning meds. pt was explained the importance of compliant with medication regiment, yet refused. V/S stable. She is reassured for her safety. safety and fall precaution in place. will continue to monitor.
[2020-04-16] MEDS: CEFTAZIDIME 1 G VIAL IM SCH (13:33)
[2020-04-16 16:00] VITALS: BP 157/79
--- NOTE | 2020-04-16 16:47 | NUR ---
DISCHARGE NOTES Received patient AOx2, patient been calm , patient however refusing her oral medication, patient denies SI and Hi, patient is no distress at this time, patient , on Q15 monitoring for safety checks and was seen by Psychiatrist and Medical doctor, patient received psychotherapy, milieu therapy and psychotropic medications,patient denies AH and VH, called and gave report to SNF, patient was picked up by ambulance EMT, patient VS was WNL , COVID 19 was done with negative result, no sign of any distress patient was Discharged, MD irizarry
== END 2020-04-16 17:21 | DRG 885 ==
LOC: ER 04:43 → GPS 05:19
PROVIDERS: ADMIT Psychiatry & Neurology Psychiatry; ATTEND Nurse Practitioner Acute Care
DX: F31.64 Bipolar disorder, current episode mixed, severe, with psychotic features (principal); E43 Unspecified severe protein-calorie malnutrition; N18.9 Chronic kidney disease, unspecified; N17.0 Acute kidney failure with tubular necrosis; Z68.1 Body mass index [BMI] 19.9 or less, adult; N39.0 Urinary tract infection, site not specified; E87.0 Hyperosmolality and hypernatremia; F23 Brief psychotic disorder; R62.7 Adult failure to thrive; F41.9 Anxiety disorder, unspecified; F03.90 Unspecified dementia, unspecified severity, without behavioral disturbance, psychotic disturbance, mood disturbance, and anxiety; Z73.6 Limitation of activities due to disability; I12.9 Hypertensive chronic kidney disease with stage 1 through stage 4 chronic kidney disease, or unspecified chronic kidney disease; R53.1 Weakness; B96.5 Pseudomonas (aeruginosa) (mallei) (pseudomallei) as the cause of diseases classified elsewhere; F39 Unspecified mood [affective] disorder; N28.1 Cyst of kidney, acquired; I35.1 Nonrheumatic aortic (valve) insufficiency
CPT/HCPCS: 36415; 83735; 83970; 84100; 84155; 84165; 85025; 87077; 87086; A4663; J0713; J1630; J1631; J1956; J2060; J2358; J3490; J7030; J7042; J7060; J7070